=== PATIENT | female | born 1955 | race Caucasian/White ===

== ENCOUNTER → 2016-10-05 | Outpatient (CLI) | payer OTHER | END | disposition home or self-care (01) | LOC: PCVCIMAG 10:25 | PROVIDERS: ATTEND Internal Medicine | DX: I70.0 Atherosclerosis of aorta (principal); I25.10 Atherosclerotic heart disease of native coronary artery without angina pectoris; I10 Essential (primary) hypertension; E78.00 Pure hypercholesterolemia, unspecified | CPT/HCPCS: 93978; G0463 ==

== ENCOUNTER → 2019-02-11 | Outpatient (CLI) | payer MEDICARE, OTHER ==
--- NOTE | 2019-02-11 17:04 | PCVCIMAG ---
APPROVED REPORT Study performed: 02/11/2019 15:38:50 Exam: Stress Echocardiogram Indication: Chest pain, elevated calcium score, htn Patient Location: Echo lab Stress Nurse: Lynnette Burr RN Status: routine Ht: 5 ft 0 in HR: 89 bpm BP: 104/64 mmHg Rhythm: NSR Procedure The patient underwent an Exercise Stress Test using the Angelo Protocol. Blood pressure, heart rate, and EKG were monitored. An Echocardiogram was performed by system support technician in four stages in quad fashion. At peak stress, four selected images were obtained and placed side by side with resting images for comparison. Stress Test Details Stress Test: Exercise stress testing was performed using a Angelo protocol. HR Resting HR: 89 bpmMax Heart Rate (APMHR): 155 bpm Max HR Achieved: 162 bpmTarget HR (85% APMHR): 131 bpm % of APMHR: 104 Recovery HR: 110 bpm HR response to stress: Normal HR response to stress BP Resting BP: 104/64 mmHg Max BP: 170/80 mmHg Recovery BP: 130/74 mmHg BP response to stress: Normal blood pressure response to stress. ECG Resting ECG: Sinus Rhythm Stress ECG: Sinus Rhythm ST Change: Normal Maximum ST Deviation: 0 mm Arrhythmia: occasional isolated PVCs Recovery ECG: Sinus Rhythm Recovery ST Change: Normal Recovery ST Deviation: 0 mm Recovery Arrhythmia: None Clinical Reason for Termination: Maximal effort Stress Symptoms: none Exercise duration: 9 min 30 sec Highest Stage Achieved: Stage 4: 4.2 mph at 16% grade. Exercise capacity: 11.6 METs Overall Exercise Capacity for Age: Normal Scale: Active Angina Score: None Stress ECG Conclusion Clinical: Non-ischemic ECG: Non-ischemic Palacio Treadmill Score is 9.0 which is Low risk. Pre-Stress Echo The resting Echocardiogram showed normal left ventricular contractility with an estimated Ejection Fraction of about >55%. Normal wall motion in all segments on baseline images. Post-Stress Echo The stress Echocardiogram showed normal left ventricular contractility with an estimated Ejection Fraction of about 65%. Normal augmentation of wall motion in all segments on post stress images. Clinical No clinical or ECG evidence for ischemia. Conclusion Clinical Response: Non-ischemic Exercise Capacity: Average Stress ECG Response: Non-ischemic Stress Echo Images: Non-ischemic The left ventricle is normal in size and wall thickness in both the rest and stress images. Normal stress echocardiogram with maximal exercise stress. Other Information Study Quality: Adequate <Conclusion> The left ventricle is normal in size and wall thickness in both the rest and stress images. Normal stress echocardiogram with maximal exercise stress.
--- NOTE | 2019-02-11 17:07 | PCVCIMAG ---
APPROVED REPORT Risk Factors Hypertension: Hyperlipidemia CAD Doppler Spectral Velocity Analysis PSV / EDVPSV / EDV ECA (R) 82 / 14 cm/sECA (L) 81 / 16 cm/s dICA (R) 37 / 15 cm/sdICA (L) 66 / 27 cm/s Farrah (R) 70 / 26 cm/smICA (L) 77 / 29 cm/s pICA (R) 61 / 18 cm/spICA (L) 69 / 18 cm/s Bulb (R) 53 / 26 cm/sBulb (L) 76 / 23 cm/s dCCA (R) 73 / 19 cm/sdCCA (L) 77 / 19 cm/s mCCA (R) 83 / 22 cm/smCCA (L) 103 / 29 cm/s Vert (R) 42 / 12 cm/sVert (L) 48 / 16 cm/s ICA/CCA 0.84ICA/CCA 0.75 Basic Measurements Blood Pressure: Pulses: Right Left RightLeft Brachial(Sitting) 100/29rwIs833/64mmHgTemporal Real Time B-Mode Imaging Vert. (R)AntegradeVert. (L)Antegrade Findings The right carotid bulb has mild plaque. The right proximal internal carotid artery shows no significant stenosis. The right common carotid artery shows no significant stenosis. The right external carotid artery shows no significant stenosis. The left carotid bulb has mild plaque. The left proximal internal carotid artery shows no significant stenosis. The left common carotid artery shows no significant stenosis. The left external carotid artery shows no significant stenosis. Conclusion 1. Mild bilateral plaquing without significant stenosis. 2. Antegrade vertebral flow.
== END | disposition home or self-care (01) ==
LOC: PCVCIMAG 14:22
PROVIDERS: ATTEND Internal Medicine
DX: I65.23 Occlusion and stenosis of bilateral carotid arteries (principal); I10 Essential (primary) hypertension; R93.1 Abnormal findings on diagnostic imaging of heart and coronary circulation
CPT/HCPCS: 93325; 93351; 93880